=== PATIENT | male | born 1980 | race Caucasian/White ===

== ENCOUNTER 2016-11-15 15:31 | Outpatient (CLI) | payer OTHER | END 2016-11-15 15:32 | disposition home or self-care (01) | DX: G47.33 Obstructive sleep apnea (adult) (pediatric) (principal) ==

== ENCOUNTER 2017-02-17 14:58 | Outpatient (CLI) | payer OTHER | END 2017-02-17 14:59 | disposition home or self-care (01) | LOC: SC 14:58 | PROVIDERS: ATTEND Nurse Practitioner Family | DX: G47.33 Obstructive sleep apnea (adult) (pediatric) (principal) | CPT/HCPCS: 99212; 99215 ==

== ENCOUNTER 2017-03-23 15:35 | Outpatient (CLI) | payer OTHER | END 2017-03-23 15:36 | disposition home or self-care (01) | LOC: SC 15:35 | PROVIDERS: ATTEND Nurse Practitioner Family | DX: G47.33 Obstructive sleep apnea (adult) (pediatric) (principal) | CPT/HCPCS: 99212; 99214 ==

== ENCOUNTER 2017-07-04 15:25 | Outpatient (CLI) | payer OTHER | END 2017-07-04 15:26 | disposition home or self-care (01) | LOC: SC 15:25 | PROVIDERS: ATTEND Nurse Practitioner Family | DX: G47.33 Obstructive sleep apnea (adult) (pediatric) (principal); I10 Essential (primary) hypertension | CPT/HCPCS: 99212; 99214 ==

== ENCOUNTER 2017-08-03 15:43 | Outpatient (CLI) | payer OTHER | END 2017-08-03 15:44 | disposition home or self-care (01) | LOC: SC 15:43 | PROVIDERS: ATTEND Nurse Practitioner Family | DX: G47.33 Obstructive sleep apnea (adult) (pediatric) (principal); R03.0 Elevated blood-pressure reading, without diagnosis of hypertension | CPT/HCPCS: 99212; 99213 ==

== ENCOUNTER 2017-09-27 15:24 | Outpatient (CLI) | payer OTHER | END 2017-09-27 15:25 | disposition home or self-care (01) | LOC: SC 15:24 | PROVIDERS: ATTEND Nurse Practitioner Family | DX: G47.33 Obstructive sleep apnea (adult) (pediatric) (principal) | CPT/HCPCS: 99212; 99214 ==

== ENCOUNTER 2017-11-01 15:27 | Outpatient (CLI) | payer OTHER | END 2017-11-01 15:28 | disposition home or self-care (01) | LOC: SC 15:27 | PROVIDERS: ATTEND Nurse Practitioner Family | DX: G47.33 Obstructive sleep apnea (adult) (pediatric) (principal) | CPT/HCPCS: 99212; 99214 ==